=== PATIENT | male | born 1945 ===

== ENCOUNTER 2021-02-23 15:19 | Outpatient (REF) | payer MEDICARE, SELFPAY ==
--- NOTE | 2021-02-28 13:25 | MHC.AU.HFU ---
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 Listening check confirms right aid is and the left aid I can create intermittent sound when squeezing the case. Visual inspection shows significant corrosion in the battery compartment and debis in microphones, right aid greater than left. Cleaned both aids, contacts, battery door, microphones, changed wax guards for both aids. Both aids now amplifying clearly. Recommendations: Contact [facility] regarding providers he may go to as [facility] will no longer be contracted after 02/25/2021. Diagnosis Code(s): Primary Diagnosis: H90.3 Bilateral Sensorineural Hearing Loss Services Performed: Number of Individual Battery Cells: 42 ABERNATHY Non-Quantity Charges: HACHECKB (MH>1 yr or new to us) Face to face appointment Signature: Provider: Carol Stiles, MARY-A
== END 2021-02-23 15:20 | disposition home or self-care (01) ==
LOC: HO.HAP 15:19
PROVIDERS: Visit Provider Nurse Practitioner Family
DX: Z46.1 Encounter for fitting and adjustment of hearing aid (principal); H90.3 Sensorineural hearing loss, bilateral
CPT/HCPCS: 92593